=== PATIENT | female | born 1955 | race Caucasian/White ===

== ENCOUNTER 2024-08-27 07:15 | Day surgery (SDC) | payer MEDICARE, BC ==
[~2024-08-27 07:15] MED LIST: Sodium Chloride 0.9% 10 ML Syringe FLUSH PRN
[2024-08-27] MEDS: Cyclopentolate 1% Opth Soln 2 ML Bottle EYELF SCH (07:35)
[2024-08-27] MEDS: Phenylephrine 2.5% Ophth Soln 2 ML Bot EYELF SCH (07:37)
[2024-08-27] MEDS: Tropicamide 1% Ophth Soln 3 ML Bottle EYELF SCH (07:38)
[2024-08-27] MEDS ORDERED: Midazolam 1 MG/ML 2 ML SDV ONE (08:30)
[2024-08-27] MEDS: Povidone-Iodine 5% Sterile Ophth Soln 30 ML Bottle EYELF SCH (08:42)
[2024-08-27] MEDS: Tetracaine HCl/PF 0.5% 4 ML Bottle EYELF SCH (08:42)
[2024-08-27] MEDS: Lidocaine 1% PF 2 ML SDV INJECT SCH (08:42)
[2024-08-27] MEDS: MOXIFLOXACIN PF in BSS 1 MG/ML VIAL IO SCH (08:42)
[2024-08-27] MEDS: Phenyleprhine/Ketorolac 4 ML Vial OP SCH (08:42)
[2024-08-27] MEDS: Brimonidine 0.2% Ophth Soln 5 ML Bottle EYELF SCH (08:55)
[2024-08-27] MEDS: acetaZOLAMIDE 500 MG Cap.ER PO SCH (09:07)
== END 2024-08-27 09:40 | disposition home or self-care (01) ==
LOC: CC.SDS 07:15
PROVIDERS: ATTEND Ophthalmology
DX: H26.8 Other specified cataract (principal); H57.03 Miosis; F41.9 Anxiety disorder, unspecified; E78.5 Hyperlipidemia, unspecified; Z79.899 Other long term (current) drug therapy
CPT/HCPCS: 00142; 99100; A9270-GY; J1097; J2250; J3490